=== PATIENT | female | born 1990 | race Two or more races ===

== ENCOUNTER → 2024-11-11 | Outpatient (CLI) | payer OTHER, SELFPAY ==
[2024-11-11 14:35] LABS: Collection Type, Urine Clean Catch; Squamous Epithelial Cell,Urine 0 /hpf (0-5)
[2024-11-11 15:22] LABS: Bacteria,Urine 1+; Bilirubin,Urine Negative (Negative); Blood,Urine Negative (Negative); Clarity,Urine Clear (Clear/Hazy); Color,Urine Colorless (Lt Yel-Yel); Glucose, Urine Negative (Negative); Hyaline Casts,Urine < 1 /hpf (0-1); Ketones,Urine Negative (Negative); Leukocyte Esterase,Urine Positive (Negative); Nitrite,Urine Negative (Negative); Protein,Urine Negative (Neg - Trace); RBC,Urine 1 /hpf (0-3); Specific Gravity,Urine 1.005 (1.001-1.035); Urobilinogen,Urine Negative mg/dL (0.0-1.0); WBC,Urine 14 /hpf (0-5)
== END | disposition home or self-care (01) ==
LOC: SLDO 14:17
PROVIDERS: PCP Family Medicine; Referring Provider Family Medicine; Visit Provider Family Medicine
DX: N30.00 Acute cystitis without hematuria (principal)
CPT/HCPCS: 81001; 87077; 87086; 87186